=== PATIENT | male | born 1970 | race Caucasian/White ===

== ENCOUNTER → 2017-07-01 | Outpatient (CLI) | payer BC ==
[~2017-07-01] VITALS: Ht 180.3 cm; Wt 83.9 kg
[~2017-07-01] MED LIST: ACID CONTROL150 MG PO; CYMBALTA30 MG PO; MULTIPLE VITAM1 EACH PO; PREVACID30 MG PO
== END | disposition home or self-care (01) ==
LOC: AMB 10:30
PROC: 0DJ08ZZ Inspection of Upper Intestinal Tract, Via Natural or Artificial Opening Endoscopic (ICD-10-PCS; principal; 2017-07-01)
DX: R14.0 Abdominal distension (gaseous) (principal); K21.9 Gastro-esophageal reflux disease without esophagitis; J45.909 Unspecified asthma, uncomplicated; E78.5 Hyperlipidemia, unspecified; R74.8 Abnormal levels of other serum enzymes; Z80.0 Family history of malignant neoplasm of digestive organs; Z80.42 Family history of malignant neoplasm of prostate
CPT/HCPCS: J2250